=== PATIENT | female | born 1945 | race Caucasian/White ===

== ENCOUNTER 2017-02-02 14:30 | Emergency (ER) | payer MEDICARE ==
[2017-02-02 16:13] LABS: #Basophils 0.1 thou/uL (0.0-0.2); #Eosinphils 0.1 thou/uL (0.0-0.7); #Monocytes 0.6 thou/uL (0.11-0.59); #Neutrophils 4.4 thou/uL (1.40-6.50); %Eosinophils 1.7 % (0.0-10.0); %Lymphocytes 27.4 % (21.0-51.0); %Monocytes 8.8 % (0.0-10.0); %Neutrophils 61.2 % (42.0-75.0); Hemoglobin 12.4 g/dL (12.0-16.0); Mean Corpuscular HGB CONC 31.2 g/dL (32.0-36.0); Mean Corpuscular Hemoglobin 25.2 pg (27.0-31.0); Mean Corpuscular Volume 80.7 fl (81.0-99.0); Mean Platelet Volume 8.7 fL (7.4-10.4); Platelet Count 251 thou/uL (130-400); Red Blood Cell (RBC) Count 4.94 mill/uL (4.20-5.40); White Blood Cell (WBC) Count 7.3 thou/uL (4.8-10.8)
[2017-02-02 16:28] LABS: ALT (SGPT) 19 U/L (8-55); AST (SGOT) 22 U/L (5-34); Albumin 3.9 g/dL (3.4-4.8); Alkaline Phosphatase 91 U/L (40-150); Anion Gap 13 mmol/L (10-20); BUN (Urea Nitrogen) 13 mg/dL (9.8-20.1); Bilirubin, Total 0.4 mg/dL (0.2-1.2); Calc. Creatinine Clearance 0 mL/min (70-130); Calcium 9.2 mg/dL (7.8-10.44); Carbon Dioxide 25 mmol/L (23-31); Chloride 108 mmol/L (98-107); Estimated GFR-MDRD 66; Globulin 3.4 g/dL (2.4-3.5); Glucose 101 mg/dL (83-110); Lipase 29 U/L (8-78); Potassium 3.8 mmol/L (3.5-5.1); Protein, Total 7.3 g/dL (6.0-8.3); Sodium 142 mmol/L (136-145)
[2017-02-02 16:34] LABS: Bilirubin Negative (Negative); Blood, Urine Negative (Negative); Clarity Clear (Clear); Glucose, Urine (Dipstick) Negative (Negative); Leukocyte Negative (Negative); Nitrite Negative (Negative); Protein, Urine (Dipstick) Negative (Neg-Trace); Urobilinogen 0.2 mg/dL (0.2-1.0); pH, Urine 6.5 (5.0-9.0)
[2017-02-02 16:36] LABS: Bacteria/HPF Rare-Few HPF (None Seen); RBC/HPF 0-3 HPF (0-3); Squamous Epithelial 0-3 HPF (0-3); WBC/HPF None Seen HPF (0-3)
== END 2017-02-02 16:58 | disposition home or self-care (01) ==
LOC: MADERS 14:30
DX: K57.92 Diverticulitis of intestine, part unspecified, without perforation or abscess without bleeding (principal); Z79.2 Long term (current) use of antibiotics
CPT/HCPCS: 36415; 80053; 81001; 83690; 85025; 86140; 99284

== ENCOUNTER 2017-05-19 08:50 | Outpatient (CLI) | payer MEDICARE ==
--- NOTE | 2017-05-19 11:33 | ULT ---
PELVIC ULTRASOUND: Date: 05/19/17 COMPARISON: None. HISTORY: Bilateral suprapubic pain/pelvic pain. TECHNIQUE: Multiplanar Arreola scale sonographic imaging of the pelvis obtained with transabdominal and endovaginal imaging. The ovaries could not be visualized on this exam. FINDINGS: Uterus measures 6.9 x 1.6 x 3.3 cm. No uterine mass identified. Endometrial thickness is approximatel y 5.0 mm, within normal limits. Neither ovary could be visualized despite transabdominal and endovaginal imaging. No free fluid is se en. Small hypoechoic areas in the region of the cervix suggest tiny nabothian cysts. IMPRESSION: Unremarkable appearance of the uterus. Endometrial stripe measures just under 5.0 mm, within normal limits for a postmenopausal female. Neither ovary could be visualized. POS: JENNIFER
== END 2017-05-19 08:51 | disposition home or self-care (01) ==
LOC: MADULT 08:50
PROVIDERS: ATTEND Internal Medicine Gastroenterology
DX: R10.2 Pelvic and perineal pain (principal)
CPT/HCPCS: 76856

== ENCOUNTER 2018-09-01 08:28 | Emergency (ER) | payer MEDICARE ==
--- NOTE | 2018-09-01 12:07 | CT ---
CT Abdomen WO Con: 09/01/2018 11:24 AM History: Hiatal hernia repair 8 days ago with diaphragm injury. Pain in the right upper quadrant of t he abdomen. COMPARISON: None. Procedure: Multiple contiguous axial images were obtained and a CT of the abdomen only without IV contrast. Natasha nal reformats were performed. FINDINGS: This examination is limited for the evaluation of solid organs and vascular structures due to the lac k of intravenous contrast. Lower Chest: Small bilateral pleural effusions with adjacent atelectasis. Abdomen: There is free air in the abdomen and mediastinum from recent surgery. Liver: within normal limits. Bile Ducts: Normal caliber. Gallbladder: Removed Pancreas: within normal limits. Spleen: within normal limits. Adrenals: within normal limits. Kidneys: within normal limits. Bowel: Normal caliber. Postsurgical changes from hiatal hernia repair are seen at the gastroesophagea l junction. Mesenteric Lymph Nodes: No enlarged mesenteric lymph nodes. Peritoneum: No ascites or free air, no fluid collection. Vessels: Atherosclerotic changes . Retroperitoneum: within normal limits. Abdominal Wall: within normal limits. Bones: Degenerative changes are seen in the spine. IMPRESSION: Postsurgical changes without evidence of obstruction or acute abnormality.
--- NOTE | 2018-09-01 12:14 | CT ---
CT thorax noncontrast: 09/01/2018 HISTORY: 72-year-old female status post recent hiatal hernia repair surgery with injury to diaphragm 8 days ag o experiencing chest pain and nausea. FINDINGS: There is a hematoma surrounding the esophagogastric junction. The short axis dimensions of this hemat sherley are approximately 6 x 2.5 cm. Craniocaudal dimension is approximately 5.5 cm. There are contiguou s bilateral posterior dependent pleural fluid collections, which could either represent pleural effus ions or hemorrhage (pneumothorax), which occupy approximately 10-15% volume of each hemithoracic cavi ty. There are consolidations in the bilateral lower lobes adjacent to these, presumably representing atelectasis. Multiple tiny metallic tacks are present around the proximal stomach. There is a small p ericardial effusion. There is no pneumothorax. The bilateral upper lung zones are clear. No thoracic aneurysm aneurysm. Subcutaneous gas in the anterior mediastinum. IMPRESSION: 1.) Status post hiatal hernia repair surgery, recent. 2) inferiorly located posterior mediastinal postoperative hematoma surrounding the lower esophagus an d esophagogastric junction. 3) bilateral small pleural fluid collections, probably representing hemothorax. 4.) Atelectasis of bilateral lower lobes and right middle lobe. 5) small pericardial effusion which may or may not be a small hemopericardium.
[2018-09-01 12:17] LABS: #Basophils 0.1 thou/uL (0.0-0.2); #Eosinphils 0.1 thou/uL (0.0-0.7); #Lymphocytes 1.4 thou/uL (1.20-3.40); #Monocytes 0.7 thou/uL (0.11-0.59); #Neutrophils 8.2 thou/uL (1.40-6.50); %Basophils 0.6 % (0.0-1.0); %Eosinophils 0.6 % (0.0-10.0); %Lymphocytes 13.1 % (21.0-51.0); %Monocytes 6.6 % (0.0-10.0); %Neutrophils 79.1 % (42.0-75.0); Hemoglobin 12.8 g/dL (12.0-16.0); Mean Corpuscular HGB CONC 31.3 g/dL (32.0-36.0); Mean Corpuscular Hemoglobin 26.5 pg (27.0-31.0); Mean Corpuscular Volume 84.6 fL (78.0-98.0); Mean Platelet Volume 6.9 fL (7.4-10.4); Platelet Count 309 thou/uL (130-400); RBC Distribution Width 13.1 % (11.5-14.5); Red Blood Cell (RBC) Count 4.84 mill/uL (4.20-5.40); White Blood Cell (WBC) Count 10.4 thou/uL (4.8-10.8)
[2018-09-01 12:36] LABS: ALT (SGPT) 29 U/L (8-55); AST (SGOT) 21 U/L (5-34); Albumin 3.9 g/dL (3.4-4.8); Alkaline Phosphatase 120 U/L (40-150); Anion Gap 17 mmol/L (10-20); BUN (Urea Nitrogen) 10 mg/dL (9.8-20.1); Bilirubin, Total 0.6 mg/dL (0.2-1.2); Calc. Creatinine Clearance 0 mL/min (70-130); Calcium 9.9 mg/dL (7.8-10.44); Carbon Dioxide 24 mmol/L (23-31); Chloride 107 mmol/L (98-107); Estimated GFR-MDRD 80; Globulin 3.5 g/dL (2.4-3.5); Glucose 113 mg/dL (83-110); Lipase 16 U/L (8-78); Potassium 4.1 mmol/L (3.5-5.1); Protein, Total 7.4 g/dL (6.0-8.3); Sodium 144 mmol/L (136-145)
== END 2018-09-01 13:45 | disposition short-term general hospital (02) ==
LOC: MADERS 08:28
DX: I31.2 Hemopericardium, not elsewhere classified (principal); I31.3 Pericardial effusion (noninflammatory); K91.870 Postprocedural hematoma of a digestive system organ or structure following a digestive system procedure; I10 Essential (primary) hypertension; J90 Pleural effusion, not elsewhere classified; M06.9 Rheumatoid arthritis, unspecified
CPT/HCPCS: 71250; 74150; 80053; 83605; 83690; 84484; 85025; 93005

== ENCOUNTER 2018-10-01 16:04 | Outpatient (CLI) | payer MEDICARE ==
--- NOTE | 2018-10-01 16:28 | RAD ---
EXAM: Two views chest PROVIDED CLINICAL HISTORY: Cough for 3 weeks COMPARISON: 09/02/2018 FINDINGS: Cardiac silhouette does appear enlarged. The pulmonary vasculature is within normal limits. There is blunting of the left lateral costophrenic angle suggesting tiny left pleural effusion. However, the pleural and parenchymal lung changes at each lung base have improved with resolution at the right hudson g base. No consolidation is seen on the current exam. The osseous structures have a normal appearance. IMPRESSION: 1. Resolution of pleural and parenchymal changes right lung base with significant interval improvemen t in pleural and parenchymal changes left lung base. There does appear to be residual tiny left pleural effusion.
== END 2018-10-01 16:05 | disposition home or self-care (01) ==
LOC: MADRAD 16:04
PROVIDERS: ATTEND Family Medicine
DX: J20.2 Acute bronchitis due to streptococcus (principal); J90 Pleural effusion, not elsewhere classified
CPT/HCPCS: 71046

== ENCOUNTER 2019-05-14 16:19 | Outpatient (CLI) | payer MEDICARE ==
--- NOTE | 2019-05-14 16:44 | RAD ---
XR Thoracic Spine 3 V STANDARD: 05/14/2019 4:26 PM Back pain COMPARISON: None FINDINGS: Fracture: None. Alignment: Mild thoracolumbar scoliosis. Degenerative Change: Moderate multilevel disc degenerative disease. There is diffuse osteopenia. Prevertebral soft tissues: Postsurgical change of prior cholecystectomy. Surgical clips are seen in t he expected region of the gastroesophageal junction. IMPRESSION: Moderate multilevel thoracic spondylosis. Mild thoracolumbar scoliosis. Diffuse osteopeni a. No acute fracture or subluxation demonstrated.
== END 2019-05-14 16:20 | disposition home or self-care (01) ==
LOC: MADRAD 16:19
PROVIDERS: ATTEND Family Medicine
DX: M54.6 Pain in thoracic spine (principal); M41.9 Scoliosis, unspecified; M47.814 Spondylosis without myelopathy or radiculopathy, thoracic region; M85.88 Other specified disorders of bone density and structure, other site
CPT/HCPCS: 72072

== ENCOUNTER 2020-05-03 08:58 | Outpatient (CLI) | payer MEDICARE ==
--- NOTE | 2020-05-03 09:28 | RAD ---
EXAM: XR Toe(s) Rt Min 2 View PROVIDED CLINICAL HISTORY: Pain status post injury COMPARISON: None FINDINGS: Nondisplaced transversely oriented fracture with mild comminution involves the second digit middle ph alanx. No intra-articular extension is evident. No additional fracture is evident. IMPRESSION: Comminuted nondisplaced second digit middle phalangeal fracture.
[2020-05-03 10:05] LABS: ALT (SGPT) 21 U/L (8-55); AST (SGOT) 21 U/L (5-34); Albumin 4.1 g/dL (3.4-4.8); Alkaline Phosphatase 95 U/L (40-110); Anion Gap 15 mmol/L (10-20); BUN (Urea Nitrogen) 15 mg/dL (9.8-20.1); Calc. Creatinine Clearance 0 mL/min (70-130); Calcium 9.3 mg/dL (7.8-10.44); Carbon Dioxide 24 mmol/L (23-31); Cardiac Risk 3.7 (Less than 4.5); Cholesterol 215 mg/dl (< 200 Desired); Estimated GFR-MDRD 68; Globulin 2.9 g/dL (2.4-3.5); Glucose 109 mg/dL (83-110); HDL Cholesterol 58 mg/dL (>60 Neg Risk); LDL Cholesterol, Calculated 138 mg/dL; Triglycerides 93 mg/dL (Less than 150)
[2020-05-03 10:37] LABS: Chloride 106 mmol/L (98-107); Potassium 3.9 mmol/L (3.5-5.1); Sodium 141 mmol/L (136-145)
[2020-05-03 10:38] LABS: #Basophils 0.1 thou/uL (0.0-0.2); #Eosinphils 0.1 thou/uL (0.0-0.7); #Lymphocytes 1.9 thou/uL (1.20-3.40); #Monocytes 0.4 thou/uL (0.11-0.59); #Neutrophils 4.3 thou/uL (1.40-6.50); %Basophils 0.9 % (0.0-1.0); %Eosinophils 1.7 % (0.0-10.0); %Lymphocytes 28.7 % (21.0-51.0); %Monocytes 5.5 % (0.0-10.0); %Neutrophils 63.2 % (42.0-75.0); Hemoglobin 13.9 g/dL (12.0-16.0); Mean Corpuscular HGB CONC 32.5 g/dL (32.0-36.0); Mean Corpuscular Hemoglobin 29.1 pg (27.0-31.0); Mean Corpuscular Volume 89.4 fL (78.0-98.0); Mean Platelet Volume 7.8 fL (7.4-10.4); Platelet Count 220 thou/uL (130-400); RBC Distribution Width 12.3 % (11.5-14.5); Red Blood Cell (RBC) Count 4.77 mill/uL (4.20-5.40); White Blood Cell (WBC) Count 6.8 thou/uL (4.8-10.8)
[2020-05-03 16:39] LABS: Hemoglobin A1c 5.9 % (4.0-6.0)
[2020-05-03 17:10] LABS: Creatinine, Urine 162.43 mg/dL (47-110); Microalbumin Urine 1.8 mg/dL (0.5-50.0); Microalbumin/Creat Ratio 11.1 mg/g (Less than 30)
== END 2020-05-03 08:59 | disposition home or self-care (01) ==
LOC: MADLAB 08:58
PROVIDERS: ATTEND Family Medicine
DX: Z00.00 Encounter for general adult medical examination without abnormal findings (principal); S99.921A Unspecified injury of right foot, initial encounter; R73.9 Hyperglycemia, unspecified; Z79.899 Other long term (current) drug therapy; S92.524A Nondisplaced fracture of middle phalanx of right lesser toe(s), initial encounter for closed fracture
CPT/HCPCS: 36415; 80053; 80061; 82043; 83036; 85025

== ENCOUNTER 2020-05-27 09:28 | Emergency (ER) | payer MEDICARE ==
[2020-05-27] MEDS ORDERED: Acetaminophen 500 MG TAB ONE ×2 (10:06→10:21)
[2020-05-27 10:46] LABS: #Basophils 0.1 thou/uL (0.0-0.2); #Lymphocytes 0.7 thou/uL (1.20-3.40); #Monocytes 0.5 thou/uL (0.11-0.59); #Neutrophils 4.8 thou/uL (1.40-6.50); %Basophils 1.4 % (0.0-1.0); %Eosinophils 0.7 % (0.0-10.0); %Lymphocytes 12.1 % (21.0-51.0); %Neutrophils 77.9 % (42.0-75.0); Hemoglobin 14.3 g/dL (12.0-16.0); Mean Corpuscular HGB CONC 33.3 g/dL (32.0-36.0); Mean Corpuscular Hemoglobin 29.1 pg (27.0-31.0); Mean Corpuscular Volume 87.3 fL (78.0-98.0); Mean Platelet Volume 9.4 fL (7.4-10.4); Platelet Count 207 thou/uL (130-400); RBC Distribution Width 12.2 % (11.5-14.5); Red Blood Cell (RBC) Count 4.92 mill/uL (4.20-5.40); White Blood Cell (WBC) Count 6.1 thou/uL (4.8-10.8)
[2020-05-27 10:47] LABS: ALT (SGPT) 24 U/L (8-55); AST (SGOT) 29 U/L (5-34); Albumin 4.4 g/dL (3.4-4.8); Alkaline Phosphatase 116 U/L (40-110); Anion Gap 20 mmol/L (10-20); BUN (Urea Nitrogen) 10 mg/dL (9.8-20.1); Bilirubin, Total 1.1 mg/dL (0.2-1.2); Calc. Creatinine Clearance 0 mL/min (70-130); Calcium 9.4 mg/dL (7.8-10.44); Carbon Dioxide 20 mmol/L (23-31); Chloride 105 mmol/L (98-107); Globulin 3.2 g/dL (2.4-3.5); Glucose 128 mg/dL (83-110); Potassium 4.3 mmol/L (3.5-5.1); Protein, Total 7.6 g/dL (6.0-8.3); Sodium 141 mmol/L (136-145)
[2020-05-28 02:15] LABS: SARS-CoV-2 MS2 Positive; SARS-CoV-2 N Gene Negative; SARS-CoV-2 S Gene Negative; SARS-CoV-2 by NAA Not Detected (NotDetected); SARS-CoV-2 orf1ab Negative
== END 2020-05-27 11:15 | disposition home or self-care (01) ==
LOC: MADERS 09:28
DX: R50.9 Fever, unspecified (principal); R05 Cough; R53.83 Other fatigue; R51.9 Headache, unspecified; R07.9 Chest pain, unspecified; Z20.828 Contact with and (suspected) exposure to other viral communicable diseases; M06.9 Rheumatoid arthritis, unspecified
CPT/HCPCS: 80053; 84443; 84484; 85025; 85379; 87635; 87804; 93005; U0003

== ENCOUNTER 2020-11-09 07:40 | Emergency (ER) | payer MEDICARE ==
[2020-11-09] MEDS ORDERED: Iopamidol 370 76% 100 ML VIAL ONE (07:50)
[2020-11-09] MEDS ORDERED: Sodium Chloride 0.9% 1,000 ML ONE (08:40)
[2020-11-09] MEDS ORDERED: diphenhydrAMINE 50 MG/ML VIAL ONE (08:40)
[2020-11-09 08:44] LABS: Bilirubin Negative (Negative); Blood, Urine Negative (Negative); Clarity Clear (Clear); Glucose, Urine (Dipstick) Negative (Negative); Ketone, Urine Negative (Negative); Leukocyte Negative (Negative); Nitrite Negative (Negative); Protein, Urine (Dipstick) Negative (Neg-Trace); Specific Gravity, Urine 1.015 (1.005-1.030); Urobilinogen 0.2 mg/dL (Less than 2)
[2020-11-09 09:03] LABS: #Basophils 0.1 thou/uL (0.0-0.2); #Eosinphils 0.1 thou/uL (0.0-0.7); #Lymphocytes 1.3 thou/uL (1.20-3.40); #Monocytes 0.6 thou/uL (0.11-0.59); #Neutrophils 7.9 thou/uL (1.40-6.50); %Basophils 0.6 % (0.0-1.0); %Eosinophils 0.9 % (0.0-10.0); %Lymphocytes 13.1 % (21.0-51.0); %Monocytes 6.1 % (0.0-10.0); %Neutrophils 79.3 % (42.0-75.0); Hemoglobin 13.5 g/dL (12.0-16.0); Mean Corpuscular HGB CONC 31.3 g/dL (32.0-36.0); Mean Corpuscular Hemoglobin 28.5 pg (27.0-31.0); Mean Platelet Volume 9.3 fL (7.4-10.4); Platelet Count 234 thou/uL (130-400); RBC Distribution Width 12.8 % (11.5-14.5); Red Blood Cell (RBC) Count 4.75 mill/uL (4.20-5.40); White Blood Cell (WBC) Count 9.9 thou/uL (4.8-10.8)
[2020-11-09 09:20] LABS: ALT (SGPT) 20 U/L (8-55); AST (SGOT) 18 U/L (5-34); Alkaline Phosphatase 95 U/L (40-110); Anion Gap 17 mmol/L (10-20); BUN (Urea Nitrogen) 16 mg/dL (9.8-20.1); Bilirubin, Total 1.2 mg/dL (0.2-1.2); Calc. Creatinine Clearance 0 mL/min (70-130); Calcium 9.6 mg/dL (7.8-10.44); Carbon Dioxide 22 mmol/L (23-31); Chloride 106 mmol/L (98-107); Globulin 3.1 g/dL (2.4-3.5); Glucose 131 mg/dL (83-110); Lipase 19 U/L (8-78); Magnesium 2.1 mg/dL (1.6-2.6); Potassium 3.9 mmol/L (3.5-5.1); Protein, Total 7.1 g/dL (5.8-8.1); Sodium 141 mmol/L (136-145)
[2020-11-09] MEDS ORDERED: Amoxicillin/Potassium Clav 875 MG TAB ONE (11:23)
== END 2020-11-09 11:32 | disposition home or self-care (01) ==
LOC: MADERS 07:40
DX: K57.32 Diverticulitis of large intestine without perforation or abscess without bleeding (principal)
CPT/HCPCS: 74177; 80053; 81003; 83690; 83735; 85025; 96374; J1200; J7050; Q9967

== ENCOUNTER 2022-02-15 13:15 | Outpatient (CLI) | payer MEDICARE | END 2022-02-15 13:16 | disposition home or self-care (01) | LOC: MADRAD 13:15 | PROVIDERS: ATTEND Family Medicine | DX: M54.50 Low back pain, unspecified (principal); M47.816 Spondylosis without myelopathy or radiculopathy, lumbar region | CPT/HCPCS: 72100 ==